=== PATIENT | female | born 1950 | race Hispanic/Latino ===

== ENCOUNTER → 2021-10-21 | Outpatient (CLI) | payer OTHER, MEDICARE ==
[~2021-10-21] MED LIST: ACET-66 PO; Aspirin PO; DOCU100C33 PO; FERR324T10 PO; HYDR-2132 PO; IOHEXOL 350 MG/ML 100ML INFUS..BTL IV ONE; LOSA100T58 PO; PRAV20TA4 PO
== END | disposition home or self-care (01) ==
LOC: RAH 09:23
PROVIDERS: ATTEND Internal Medicine Gastroenterology
DX: K57.90 Diverticulosis of intestine, part unspecified, without perforation or abscess without bleeding (principal); N32.89 Other specified disorders of bladder; I70.8 Atherosclerosis of other arteries; M47.815 Spondylosis without myelopathy or radiculopathy, thoracolumbar region
CPT/HCPCS: 74178; Q9967